=== PATIENT | female | born 1950 | race Caucasian/White ===

== ENCOUNTER → 2018-01-01 15:33 | Outpatient (CLI) | payer MEDICARE, OTHER, SELFPAY ==
--- NOTE | 2018-01-01 | DI.MRI.S_ITS ---
PROCEDURE: MR KNEE LT WO CON INDICATIONS: UNILATERAL PRIMARY OSTEOARTHRITIS OF LEFT KNEE TECHNIQUE: Noncontrast sagittal PD fast spin echo and T2 fast spin echo with fat saturation, sagittal 3-D FLASH with fat saturation; coronal T1 spin echo and PD fast spin echo with fat saturation, and axial PD fast spin echo with fat saturation through the knee. COMPARISON:[facility], CR, XR KNEE 1 OR 2 VIEWS RIGHT, 11/28/2017, 11:39. [facility], CR, XR KNEE ARTHRITIC SERIES BI, 11/11/2017, 13:58. [facility], MR, KNEE WITHOUT CONTRAST, 05/20/2016, 9:58. [facility], MR, KNEE LT W/ CONTRAST, 06/07/2013, 15:57. FINDINGS: Image quality: Excellent. Menisci: The medial meniscus is diminutive, as before, suggestive of prior partial resection. There is amorphous high signal intensity within the posterior horn medial meniscus, demonstrating superior and inferior articular surface extension, consistent with degenerative tearing, as before. Lateral meniscus is intact. Cruciate ligaments: The anterior and posterior cruciate ligaments appear intact. Medial structures: The medial collateral ligament appears intact. Mild T2 signal elevation at the tibial insertion of the semimembranosus is present. Visualized portions of the pes anserinus tendons appear normal. No abnormal bursal fluid. Lateral structures: The lateral collateral ligament demonstrates mild T2 signal elevation at the femoral insertion site. The long and short heads of the biceps femoris tendon appear intact. The popliteus tendon appears normal. Iliotibial band appears normal. Anterior structures: The quadriceps and patellar tendons appear intact. Patellar alignment is normal. No femoral trochlear dysplasia or ventral trochlear prominence. No edema in the infrapatellar fat pad. Bones and cartilage: No bone marrow contusions or fractures. Moderate tricompartmental periarticular osteophyte formation is present. Severe articular cartilage loss overlies the lateral patellar facet inferiorly, as before. There is severe articular cartilage loss diffusely overlying the weightbearing aspects of the medial femoral condyle and medial tibial plateau, as before. Joint space: There is a moderate knee joint effusion and a small Quinn's cyst. Normal appearing synovial plicae are incidentally noted. IMPRESSION: 1. Tricompartmental osteoarthritis with associated articular cartilage loss. 2. No change in degenerative tearing of the posterior horn medial meniscal remnant. 3. Insertional tendinitis of the semimembranosus. 4. Knee joint effusion and Quinn's cyst. 5. Partial-thickness tearing of the lateral collateral ligament. Dictated by: Lalitha Enamorado M.D. on 01/01/2018 at 16:54 Approved by: Lalitha Enamorado M.D. on 01/01/2018 at 16:58
== END ==
PROVIDERS: PCP Student in an Organized Health Care Education/Training Program; Visit Provider Orthopaedic Surgery
DX: M17.12 Unilateral primary osteoarthritis, left knee (principal); M23.322 Other meniscus derangements, posterior horn of medial meniscus, left knee; S83.422A Sprain of lateral collateral ligament of left knee, initial encounter; M76.892 Other specified enthesopathies of left lower limb, excluding foot; M25.462 Effusion, left knee
CPT/HCPCS: 73721

== ENCOUNTER → 2018-01-13 12:48 | Outpatient (CLI) | payer MEDICARE, OTHER, SELFPAY ==
[2018-01-13 13:21] LABS: Add Manual Diff / Slide Review NO; Basophils Percent Auto 0.9 % (0-2); Eosinophils Percent Auto 3.5 % (2-4); Hematocrit 37.5 % (36-46); Hemoglobin 12.8 g/dL (12.0-16.0); Lymphocytes Percent Auto 35.1 % (25-40); Mean Corpuscular HGB Conc 34.2 % (30-36); Mean Corpuscular Hemoglobin 33.1 PG (26-34); Mean Corpuscular Volume 96.9 fL (80-100); Monocytes Percent Auto 8.2 % (3-14); Neutrophils Absolute Auto 3000 /uL (3000-5900); Neutrophils Percent Auto 52.3 % (50-75); Platelet Count 381 X10^3/uL (150-400); Red Blood Cell Count 3.87 X10^6/uL (4.0-5.2); Red Cell Distribution Width 12.8 % (11.6-14.8); White Blood Cell Count 5.8 X10^3/uL (4.5-11.0)
[2018-01-13 14:54] LABS: Carbon Dioxide 32 mmol/L (22-32); Chloride 101 mmol/L (98-107); HEMOLYSIS < 15 (0-50); Potassium 5.2 mmol/L (3.4-5.1); Sodium 142 mmol/L (137-145)
== END ==
PROVIDERS: PCP Student in an Organized Health Care Education/Training Program; Visit Provider Orthopaedic Surgery
DX: Z01.818 Encounter for other preprocedural examination (principal); Z01.812 Encounter for preprocedural laboratory examination; M17.11 Unilateral primary osteoarthritis, right knee; Z96.651 Presence of right artificial knee joint
CPT/HCPCS: 36415; 80051; 85025; 93005

== ENCOUNTER 2018-02-18 06:26 | Day surgery (SDC) | payer MEDICARE, OTHER, SELFPAY ==
[2018-01-28 13:45] VITALS: BMI 26.3
[2018-01-28 16:00] VITALS: BMI 26.3
[2018-02-18] VITALS (14 sets, daily range): BP systolic 94–138; BP diastolic 58–78; PULSE 69–110; RESP 11–20; TEMP 36.1–37.2; O2SAT 94–100; BMI 26.3
--- NOTE | 2018-02-18 | DI.RAD.S_ITS ---
PROCEDURE: XR KNEE LT 1TO2V INDICATIONS: TOTAL LEFT KNEE TECHNIQUE: 2 view(s) of the knee acquired. COMPARISON: None. FINDINGS: Bones: Patient is status post knee joint arthroplasty. Hardware components are in expected positions. Visualized bony structures are intact. Soft tissues: Overlying postoperative changes are noted. IMPRESSION: Status post left total knee arthroplasty. Dictated by: Lyubov Cordoba M.D. on 02/18/2018 at 9:51 Approved by: Lyubov Cordoba M.D. on 02/18/2018 at 9:51
[2018-02-18] MEDS: ACETAMINOPHEN 325 MG TABLET 975 MG PO ×3 (06:50→20:49)
[2018-02-18] MEDS: PREGABALIN 75 MG CAPSULE PO (06:50)
[2018-02-18] MEDS: CELECOXIB 200 MG CAPSULE PO (06:50)
--- NOTE | 2018-02-18 06:51 | PM.PREOP ---
Pre-operative Note Interval Note Pre-op Check: Yes History & Physical Reviewed by Physician and Yes Exam Performed Changes: No
[2018-02-18] MEDS: LACTATED RINGERS 1,000 ML 42 ML IV (06:55)
--- NOTE | 2018-02-18 07:05 | P.OP_ITS ---
Operative Date/Time/Diagnoses Date of procedure: 02/18/18 Time of procedure: 09:09 Pre-op diagnosis: Left knee osteoarthritis Post-op diagnosis: same Procedure & Clinicians Procedure: Left total knee arthroplasty Same procedure as scheduled: Yes Indications: The patient presents today for total knee arthroplasty after failure of conservative treatment. The nature of the procedure including the risks and benefits, alternatives, postoperative course and expected outcome were discussed and all questions answered. Consent was obtained. Operative site confirmed and marked. Surgeon: Mane Nash Pipeline Gang Supervisor: Max Mares Anesthesia Type: General and Local Operative Notes Findings: Severe osteoarthritis with varus alignment. Closure Type: primary Specimen(s): none sent Implants & Drains: [employer] Red BCS: 4 femoral component, 2 tibial component, 9 mm BCS polyethylene tray and 29 x 9 mm round patella Applied: implant(s) Estimated Blood Loss (mL): 50 Blood products transfused: none Tourniquet time (min): 17 Procedure in detail: The patient was taken to the operative suite and placed under general anesthesia. The patient was given prophylactic antibiotics prior to surgery. The patient was also given tranexamic acid, 1 g, just prior to surgery for postoperative hemostasis. The lateral knee was prepped and the joint injected with 20 mL of 1% Lidocaine with epinephrine. The knee was then prepped and draped in usual sterile fashion. The leg was exsanguinated with an Esmarch dressing and the tourniquet raised to 250 torr. A 15 cm anterior incision was made. Next a medial trivector arthrotomy was made. The extensor mechanism was marked to ensure accurate repair. Initial exposing dissection was carried out medially and laterally. The knee was then extended and the patellar thickness was measured and a cut made removing approximately 9 mm of bone with a goal of restoring normal patellar thickness. The patella was then sized and drilled. Some excess lateral bone was excised and the patellofemoral ligament released. The tourniquet was then released. The knee was then flexed and the [employer] femoral guide was placed. The anterior pins were placed and the distal rotation holes drilled. The distal cutting guide was placed and the templated distal femoral cut was made. The templating cutting block was then placed and the anterior, posterior and chamfer cuts made. The [employer] tibial guide was placed and the alignment checked along the axis of the proximal tibial with a donya. The proximal tibial cut was then made with an oscillating saw. All meniscus and bony debris was then removed. Flexion extension gaps were checked. No specific balancing was required other than routine exposure and removal of osteophytes. The knee was actually slightly looser medially than laterally. The soft tissues were then injected with a combination of 20 mL of half percent Marcaine with epinephrine and 20 mL of Exparel. The trial components were then placed. The knee went into full extension and flexion beyond 120?. There was excellent medial- lateral balance throughout motion. Patellar tracking was excellent. The trial components were removed and size is confirmed for the final implants. The knee was then exsanguinated with an Esmarch dressing and the tourniquet reapplied for cementing. The knee was cleansed with Pulsavac irrigation and dried. The final components were cemented in with high viscosity vacuum mixed bone cement with antibiotics. The knee was held in extension and the patellar clamp until the cement had adequately cured. The knee was then irrigated with dilute Betadine solution. The extensor mechanism was closed with 5 interrupted #1 Vicryl sutures in 90 degrees of flexion. The joint was then injected with a combination of 1 g of tranexamic acid and 20 mL of quarter percent Marcaine with epinephrine. The subcutaneous tissue was closed with 2-0 Vicryl. The skin was closed with 4 0 V lock and surgical adhesive. An Aquacell dressing and Ej wrap were then applied. Complications: none Condition: stable Disposition: PACU Plan for aftercare: [facility]. Discharged to home in 1-2 days.
[2018-02-18] MEDS: CEFAZOLIN 2 GM/100 ML FROZ.PIGGY IV ×2 (08:00→16:41)
--- NOTE | 2018-02-18 08:18 | SUR.OPER ---
Supine on padded OR bed. Pillow under head, arms secured on padded armboards <90 degree abduction. Safety belt across torso. Non-operative leg secured with tape over blanket over lower leg. Operative leg secured in DeMayo/Malik positioner. Foam padded brace at thigh of operative leg.
[2018-02-18] MEDS: LIDOCAINE 1% W/EPI INJ 20 ML INJ (08:29)
[2018-02-18] MEDS: BUPIVACAINE LIPOSOME 266 MG/20 ML VIAL INJ (08:32)
[2018-02-18] MEDS: BUPIVACAINE 0.5% W/ EPI (PF) 20 ML, BUPIVACAINE LIPOSOME 266 MG, SODIUM CHLORIDE 0.9% 2... INJ (08:33)
[2018-02-18] MEDS: TRANEXAMIC ACID 1,000 MG VIAL 1000 MG INJ (08:36)
[2018-02-18] MEDS: POVIDONE-IODINE 15 ML, SODIUM CHLORIDE 0.9% 250 ML TOP (08:37)
[2018-02-18] MEDS: HYDROMORPHONE 2 MG INJ 0.5 MG IV ×2 (09:52→09:58)
[2018-02-18] MEDS: LACTATED RINGERS 1,000 ML 125 ML IV ×2 (10:45→20:53)
--- NOTE | 2018-02-18 11:06 | CM.DANOTE ---
DCP: Case received, EMR reviewed and met with patient. Introduced self and role. DCP template completed with information currently available. Patient is a 67 year old female who admitted early this am to the care of the hospitalist team. PCP: Dr. Milan. Surgeon: Dr. Nash. Payer: confirmed: Medicare/[facility] Patient came to hospital for Left Total Knee Arthroplasty. Met with patient this morning, in room. Pleasant. Stated that she had her other knee done in November, and still has her crutches. Also stated that she has been going to outpatient physical therapy in [facility] which she will continue to do. is supportive. Patient stated that her only concern is that she lives in a tri-level home. Stated that physical therapy will work with her. P: DCP to continue to follow closely. Patient should be able to return home after working with physical therapy. Tatyana Lange RN/[employer]
[2018-02-18] MEDS: HYDROCODONE/ACET 5/325 TABLET 2 TAB PO ×2 (13:18→18:02)
--- NOTE | 2018-02-18 14:11 | PT.IIE ---
Addendum entered and electronically signed by Vonda Sargent PT 02/19/18 09:02: This is to certify that I have reviewed this documentation and POC Original Note: Current Diagnoses Unilateral primary osteoarthritis, left knee (02/18/18) Presence of right artificial knee joint (02/18/18) Surgery Performed Operation Date: 02/18/18 07:45 Actual Procedures p Total Knee Arthroplasty(Left) - Mane Nash MD Surgical History (Last Updated 01/28/18 @ 14:02 by Nancy Florez RN) H/O arthroscopic knee surgery (Acute ~2000) H/O shoulder surgery (Acute) History of bladder surgery (Acute) History of hand surgery (Acute ~2006) Status post right partial knee replacement (Acute) Medical History (Last Updated 01/28/18 @ 16:17 by Nancy Florez RN) Constipation (Acute) Degenerative arthritis of left knee (Acute) Diverticulitis (Acute) Failure of rotator cuff repair (Acute) GERD (gastroesophageal reflux disease) (Acute) History of hysterectomy (Acute) History of recurrent UTIs (Acute) Hyperlipidemia (Acute) Osteoarthritis (Acute) UTI (urinary tract infection) (Acute) Physical Therapy Inpatient Evaluation/Re-Eval M1 PT/OT-IP Prior Functional Status Start: 02/18/18 16:32 Freq: NEEDED Status: Active Protocol: Document 02/18/18 14:11 (Rec: 02/18/18 17:01 [id number]) Medical Review Prior Functional Status Medical History Reviewed Yes Communication No deficits noted. Mobility and Gait Pt previously community ambulator using no AD. Independent in self care and driving. Describes herself as an avid golfer. Social History Household Members spouse Living Arrangements House Number of Floors (Floors) 3 or More Floors Number of Stairs To Enter/Railing? 3 steps L rail + landing + 5steps B rails to enter. First floor is rarely used. 4steps L rail + landing + 5 steps L rail to kitchen and living room. 6steps-7 R rail to access main bathroom and bedroom. 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 Her is avaliable to assist 24/7 at d/c Pt also has recumbant bike. M2 PT-IP Current Condition Start: 02/18/18 16:32 Freq: NEEDED Status: Active Protocol: Document 02/18/18 14:11 (Rec: 02/18/18 17:01 [id number]) Physical Therapy Current Condition Current Condition Evaluation Date 02/18/18 Treatment Diagnosis L TKA; difficulty walking Onset Date 02/18/18 Weight Bearing Status Weight Bearing Status Weight Bear as Tolerated M3 PT-IP Subjective Start: 02/18/18 16:32 Freq: NEEDED Status: Active Protocol: Document 02/18/18 14:11 (Rec: 02/18/18 17:01 [id number]) Subjective Physical Therapy Visit Type Type Initial Evaluation Visit Start Time 14:11 Visit Stop Time 15:14 Total Visit Minutes 63 Number of TRADE ANALYST Visits 0 Physical Therapy Visit Comments Patient Comments Pt agreeable to mobilize with PT. Patient Goals Pt has tri level home and wants to be able to access all 3 floors at d/c. Her main bathroom and bedroom are on the top floor and she is not open to rearranging her home. She wants to ambulate with no AD. Therapy Pain Assessment Pain When Pain Assessed During Mobility Pain Present Pain Present Pain Reported Location Left Knee Scale Used 1/10 at rest. 3/10 with activity. Pain Management Techniques Apply Cold Elevation Modification of Treatment Re-positioning Timing of Activity with Medications M4 PT-IP Mobility and Gait Start: 02/18/18 16:32 Freq: NEEDED Status: Active Protocol: Document 02/18/18 14:11 (Rec: 02/18/18 17:01 [id number]) PT-Bed Mobility Assessment Supine to Sit Supine to Sit Standby Assistance Sit to Supine Sit to Supine Standby Assistance Scooting Scooting to Edge of Bed Standby Assistance PT-Transfer Assessment Sit to and From Stand Sit to and from Stand Contact Guard Assistance Use of Upper Extremities Equipment Transfer Assistive Device Gait Belt Front Wheeled Walker Axillary Crutches Orthotic/Prosthetic Devices or Brace: No Transfers Transfer Destination Bed Chair Transfer Technique Ambulates between surfaces. Comments Mobility Comments Supine BP 131/74. Supine <> sit is SBA no cues. Sit <> stand with fww is CGA min cues . BP on standing is 117/74. Pt cued to breath. She states no c/o of dizziness or nausea and requests to use the toilet. She is able to sit <> stand from toilet with no UE assist CGA. Sit <> stand with crutches is CGA min cues. After ambulating to the toilet (see below ) BP 128/70) . Pt continues to deny symptoms of nausea or dizziness and agrees to ambulate and try stairs. Gait Assessment Gait Gait Assistance Required: Contact Guard Assist Distance (Feet) 200 Able to Maintain Weight Bearing Status Yes During Gait Assistive Devices Assistive Device Gait Belt Front Wheeled Walker Axillary Crutches Orthotic/Prosthetic Devices or Brace: No Gait Deviations General Gait Pattern Antalgic Decreased Feet Clearance Factors Limiting Gait Function Factors Limiting Gait Function Decreased Activity Tolerance Decreased Strength Difficulty Following Directions Limited Range of Motion Pain Poor Balance Poor Safety Awareness Comments Gait Comments Pt ambulates in room 15 ft with fww CGA with max cues for fww management. Pt states preference for crutches and requests trial with crutches. Pt ambulates 200 ft using B axillary crutches CGA with max cues. She demonstrates impulsivity lifting her crutches up out to the side despite cues and is asked repeatedly to wait for PT. Gait pattern demonstrates low foot clearance and tendency to maintain knee in ~ 10 deg flexion. With min cues she is able to partially correct. Pt occilates between 3 pt and 4 pt. gait pattern. Pt cued to maintain 3 pt with crutches to offload the LLE but she states preferring to go back and forth. Stair Climbing Assessment Evaluation Level of Assist On Stairs Contact Guard Assistance Devices Stair Climbing Assistive Devices Axillary Crutches Right Railing Technique/Endurance Stair Climbing Direction Ascend and Descend Stair Climbing Technique Step to Step Number of Steps Climbed 3 Query Text: Stair Climbing Set # Repetitions (reps) 2 Comments Stair Climbing Comments Pt up/down steps CGA with unilateral crutch L arm and R rail ascending. Max cues for technique and pt impulsive, not waiting for PT instructions. PT-Balance Assessment Sitting Balance and Reactions Static Sitting Balance Ability Good Dynamic Sitting Balance Ability Good Standing Balance and Reactions Static Standing Balance Ability Good Dynamic Standing Balance Ability Fair Device Used B axillary crutches. M5 PT-IP Objective Assessments Start: 02/18/18 16:32 Freq: NEEDED Status: Active Protocol: Document 02/18/18 14:11 (Rec: 02/18/18 17:01 [id number]) Orientation Orientation/Cognition Level of Alertness Alert Orientation Name Age Birthday Month Date Year Day of Week Place Situation Safety Awareness Decreased Safety Awareness Gross Range of Motion Lower Extremity ROM Assessment Left Impaired Impairments L knee flexion 90 deg. Strength Lower Extremity Strength Assessment Left Impaired Comments Strength Comments Gross strength RLE 5/5. LLE 3 /5 Sensation Assessment Sensation Light Touch Intact M6 PT-IP Treatment Start: 02/18/18 16:32 Freq: NEEDED Status: Active Protocol: Document 02/18/18 14:11 (Rec: 02/18/18 17:01 [id number]) Physical Therapy Treatment Education Education Provided Precautions Weight Bearing Status Post-Op Packet Safety M7 PT-IP Assessment and Plan Start: 02/18/18 16:32 Freq: NEEDED Status: Active Protocol: Document 02/18/18 14:11 (Rec: 02/18/18 17:01 [id number]) PT Summary Assessment and Plan Potential Rehabilitation Potential Good Status of Condition at Evaluation Stable Summary Impairments Pain ROM Strength Balance Bed Mobility Transfers Gait Activity Tolerance Progress Towards Goals Progressing Toward Goals Assessment Summary Pt s/p L TKA with difficulty walking. She completed 200 ft ambulation with B axillary crutches CGA as well as completed up/down 3 steps using R rail, unilateral axillary crutch and CGA. Pt requires max cues for safety this session, demonstrating poor safety awareness and impulsivity that increase her risk for falls. Pt needs continued education regarding safety issues. Once stair and ambulatoin training have progressed, pt safety improves , and pt is medically stable recommend d/c to home with 24/ 7 assist of and f/u OP PT. Goals Bed Mobility Goal Independent Transfer Goal Standby Assistance Crutches Gait Goal Standby Assistance Crutches Gait Distance 250 Days to Meet Goals 2 Frequency of Treatment Frequency Of Treatment Twice a Day Treatment Plan Physical Therapy Treatment Plan Bed Mobility Training Transfer Training Gait Training Therapeutic Exercise Balance Retraining Post Op Education Discharge Planning Hot or Cold Pack Neuromuscular Re-ed Coordination Retraining Manual Therapy Other Recommendations and Next Treatment progress stair climbing and Focus ambulation. emphasize pt safety education as she tends to be impulsive. Recommendations To Nursing Amount of Assist Needed 1 Person Assist Discharge Recommendations PT Discharge Recommendations Home with 24/7 Assist Outpatient PT
--- NOTE | 2018-02-18 15:27 | PC.NURSE ---
Pt to room around 1015. She is a&ox3. Given 1 vicodin around 1315 and ice. Both of which have been helpful for discomfort. Pt explained to that she can have more vicodin if pain increases. She was a 5 before given.
[2018-02-18] MEDS: ASPIRIN EC 81 MG TABLET PO (20:49)
[2018-02-18] MEDS: TRAZODONE 50 MG TABLET PO (20:50)
[2018-02-19] MEDS: CEFAZOLIN 2 GM/100 ML FROZ.PIGGY IV (00:19)
[2018-02-19] MEDS: HYDROMORPHONE 0.5 MG INJ IV (04:06)
[2018-02-19] MEDS: IBUPROFEN 600 MG TABLET PO ×2 (04:13→09:50)
[2018-02-19] MEDS: ONDANSETRON 4 MG/2 ML INJ IV (04:13)
[2018-02-19 04:15] VITALS: BP 111/60; PULSE 77; RESP 16; TEMP 36.7; O2SAT 95
[2018-02-19] MEDS: PANTOPRAZOLE 20 MG TABLET PO (07:51)
[2018-02-19] MEDS: ASPIRIN EC 81 MG TABLET PO (07:55)
[2018-02-19] MEDS: ACETAMINOPHEN 325 MG TABLET 975 MG PO (07:55)
[2018-02-19 08:17] VITALS: BP 111/57; PULSE 74; RESP 20; TEMP 36.5; O2SAT 97
--- NOTE | 2018-02-19 09:04 | PC.NURSE ---
Pt up in room using one crutch to ambulate. States this is more comfortable for her than a walker as she has a painful left wrist. Pt requesting to be discharged by noon and was told that this would be possible once she has been passed by PT. Pt was able to laugh at the issues she had with not having docusate and tylenol available as she would have liked. Plan to discuss with PA this am.
--- NOTE | 2018-02-19 09:15 | PT.IPTN ---
Current Diagnoses Unilateral primary osteoarthritis, left knee (02/18/18) Presence of right artificial knee joint (02/18/18) Surgery Performed Operation Date: 02/18/18 07:45 Actual Procedures p Total Knee Arthroplasty(Left) - Mane Nash MD Physical Therapy Treatment Note M2 PT-IP Current Condition Start: 02/18/18 16:32 Freq: NEEDED Status: Discharge Protocol: Document 02/18/18 14:11 (Rec: 02/18/18 17:01 [id number]) Physical Therapy Current Condition Current Condition Evaluation Date 02/18/18 Treatment Diagnosis L TKA; difficulty walking Onset Date 02/18/18 Weight Bearing Status Weight Bearing Status Weight Bear as Tolerated M3 PT-IP Subjective Start: 02/18/18 16:32 Freq: NEEDED Status: Discharge Protocol: Document 02/19/18 09:15 GGD (Rec: 02/19/18 11:25 GGD [id number]) Subjective Physical Therapy Visit Type Type Treatment Note Visit Start Time 08:50 Visit Stop Time 09:15 Total Visit Minutes 25 Number of LOAN PROCESSOR Visits 1 Physical Therapy Visit Comments Patient Comments Pt states she feels ready to go home. Therapy Pain Assessment Pain When Pain Assessed During Mobility Pain Present Pain Present Pain Reported Location Left Knee Intensity 3 Scale Used Numeric (1 - 10) M4 PT-IP Mobility and Gait Start: 02/18/18 16:32 Freq: NEEDED Status: Discharge Protocol: Document 02/19/18 09:15 GGD (Rec: 02/19/18 11:25 GGD [id number]) PT-Bed Mobility Assessment Supine to Sit Supine to Sit Standby Assistance Sit to Supine Sit to Supine Standby Assistance Scooting Scooting to Edge of Bed Standby Assistance PT-Transfer Assessment Sit to and From Stand Sit to and from Stand Contact Guard Assistance Use of Upper Extremities Equipment Transfer Assistive Device Gait Belt Axillary Crutches Orthotic/Prosthetic Devices or Brace: No Transfers Transfer Destination Bed Gait Assessment Gait Gait Assistance Required: Contact Guard Assist Distance (Feet) 400 Able to Maintain Weight Bearing Status Yes During Gait Assistive Devices Assistive Device Gait Belt Axillary Crutches Orthotic/Prosthetic Devices or Brace: No Gait Deviations General Gait Pattern Antalgic Decreased Feet Clearance Factors Limiting Gait Function Factors Limiting Gait Function Decreased Activity Tolerance Decreased Strength Difficulty Following Directions Limited Range of Motion Pain Poor Balance Poor Safety Awareness Comments Gait Comments pt need cues for ambulation and is impulsive with transfers. Stair Climbing Assessment Evaluation Level of Assist On Stairs Contact Guard Assistance Devices Stair Climbing Assistive Devices Axillary Crutches Right Railing Technique/Endurance Stair Climbing Direction Ascend and Descend Stair Climbing Technique Step to Step Number of Steps Climbed 3 Query Text: Stair Climbing Set # Repetitions (reps) 4 Comments Stair Climbing Comments Pt up/down steps CGA with unilateral crutch L arm and R rail ascending. Mod cues for technique. M5 PT-IP Objective Assessments Start: 02/18/18 16:32 Freq: NEEDED Status: Discharge Protocol: Document 02/18/18 14:11 (Rec: 02/18/18 17:01 [id number]) Orientation Orientation/Cognition Level of Alertness Alert Orientation Name Age Birthday Month Date Year Day of Week Place Situation Safety Awareness Decreased Safety Awareness Gross Range of Motion Lower Extremity ROM Assessment Left Impaired Impairments L knee flexion 90 deg. Strength Lower Extremity Strength Assessment Left Impaired Comments Strength Comments Gross strength RLE 5/5. LLE 3 /5 Sensation Assessment Sensation Light Touch Intact M6 PT-IP Treatment Start: 02/18/18 16:32 Freq: NEEDED Status: Discharge Protocol: Document 02/19/18 09:15 GGD (Rec: 02/19/18 11:25 GGD [id number]) Physical Therapy Treatment Exercises Exercises Ankle Pumps Quad Sets Heel Slides Straight Leg Raises M7 PT-IP Assessment and Plan Start: 02/18/18 16:32 Freq: NEEDED Status: Discharge Protocol: Document 02/19/18 09:15 GGD (Rec: 02/19/18 11:25 GGD [id number]) PT Summary Assessment and Plan Summary Assessment Summary Pt improving with mobility. She needs cues for mobility. She is impulsive and easily distracted. She need cues for safety and gait technique with crutches. Frequency of Treatment Frequency Of Treatment Twice a Day Treatment Plan Physical Therapy Treatment Plan Bed Mobility Training Transfer Training Gait Training Therapeutic Exercise Balance Retraining Post Op Education Discharge Planning Hot or Cold Pack Neuromuscular Re-ed Coordination Retraining Manual Therapy Other Recommendations and Next Treatment progress stair climbing and Focus ambulation. emphasize pt safety education as she tends to be impulsive. Recommendations To Nursing Amount of Assist Needed 1 Person Assist Discharge Recommendations PT Discharge Recommendations Home with / Assist Outpatient PT
[2018-02-19] MEDS: DOCUSATE 100 MG CAPSULE PO (09:57)
--- NOTE | 2018-02-19 10:05 | P.DS_ITS ---
History of Present Illness Date Patient Seen: 02/19/18 Time Patient Seen: 10:04 Chief complaint: 10550 LEFT TOTAL KNEE ARTHROPLASTY Narrative: The patient presents today for total knee arthroplasty after failure of conservative treatment. The nature of the procedure including the risks and benefits, alternatives, postoperative course and expected outcome were discussed and all questions answered. Consent was obtained. Operative site confirmed and marked. Discharge Providers Date of admission: 02/18/18 06:26 Primary care physician: Blanca Milan MD Consults: 02/18/18 10:30 Consult to Discharge Planning Routine Comment: Consult to Physical Therapy Evaluate & Treat Comment: Physician Instructions: postop TKA protocol Consult to Respiratory Therapy Evaluate & Treat Comment: Physician Instructions: Evaluate and treat Discharge provider: Carina Kohli PA-C Discharge Date: 02/19/18 Summary Discharge Diagnosis: s/p left TKA Hospital Course: Emma was admitted for left total knee arthroplasty with Dr. Nash, and she consented to procedure. Hospital course was unremarkable. On postop day 1. Patient was feeling well and ready to go home. Pain was well controlled with Crump, Tylenol, and ibuprofen. ASA for DVT prophylaxis. She is up and mobilizing with physical therapy. Calves are soft, compressible, and nontender bilaterally at time of discharge. She is eating and voiding without difficulty or assistance. Exam Vital Signs (past 8 hours): - 02/19/18 04:15 02/19/18 08:17 Temperature 98.0 F 97.7 F Pulse Rate 77 74 Respiratory Rate 16 20 Blood Pressure 111/60 111/57 L Pulse Oximetry 95 97 Oxygen Delivery Method Room Air Oxygen Flow Rate 0 Narrative Exam Narrative: Patient lying in bed in no acute distress. She is alert and oriented x3. Dressing on left knee is CDI. Ej wrap in place. Calves are soft , compressible, nontender bilaterally. Sensation intact to light touch throughout bilateral lower extremities. Pulses are symmetrical. Patient using crutches to mobilize. Her pain is well controlled this morning. Denies chest pain or shortness of breath. Discharge Plan Discharge Plan Patient Disposition: Home Discharge comment: DC home today before noon Discharge Med Rec/Prescriptions Prescriptions: New docusate sodium 100 mg Capsule 100 mg PO BID PRN (Reason: Constipation) Qty: 60 RF: 0 Continue multivitamin Tablet 1 tab PO DAILY RF: 0 atorvastatin 40 mg Tablet 40 mg PO DAILY RF: 0 trazodone 50 mg Tablet 50 - 100 mg PO BEDTIME RF: 0 valacyclovir 1 gram Tablet 1,000 mg PO DAILY PRN (Reason: Outbreak) RF: 0 hydroxyzine HCl 25 mg Tablet 25 mg PO Q6H PRN (Reason: anxiety (spasms, discomfort)) RF: 0 estradiol 0.01 % (0.1 mg/gram) Cream 1 pump VAGINAL 2XW RF: 0 calcium phos,dibas-vitamin D3 105-120 mg-unit Tablet 1 cap PO DAILY RF: 0 aspirin [Aspir-81] 81 mg Tablet,Delayed Release (Dr/Ec) 81 mg PO BID RF: 0 omeprazole 20 mg Capsule,Delayed Release(Dr/Ec) 20 mg PO DAILY RF: 0 Changed acetaminophen 325 mg Tablet 975 mg PO TID Qty: 0 RF: 0 Follow up/Referrals: Mane Nash MD [Physician] - (Please follow up in 5-7 days at [facility] [place] [facility] [place] [facility] Provider Discharge Instructions Diet: Diet as Tolerated Cold/Heat Therapy: as needed Skin/Wound/Dressing Care Report to your healthcare provider any signs of infection, such as:: chills, fever and increased pain Dressing: leave in place for 10-14 days Visit Report/Discharge Packet Instructions: DI for Knee Replacement Discharge Data Primary Care Provider: Blanca Milan Attending Provider: Mane Nash Admit Date/Time: 02/18/18 06:26 Quality VTE Deep Vein Thrombosis/Pulmonary Embolism Present on Admission: No
--- NOTE | 2018-02-19 10:43 | CM.DPC ---
DCP: Patient is to be discharged home today. Will be pursuing outpatient physical therapy. will be transporting patient and assisting patient with any needs she may have at home. Has already done stair training with physical therapy. P: Patient is to be discharged home today. Tatyana Lange RN/[employer]
--- NOTE | 2018-02-19 11:11 | PC.NURSE ---
Pt requesting vicodin but not able to have because she will exceed max dose of 4G of tylenol. Pt believes this is not correct but explained to patient that we cannot give more tylenol at this time. Unable to tolerate oxycodone therefore will need to wait until mid afternoon before her next dose. Explained to patient how the numbers exceed the 4gm tyron but pt remains unconvinced and believes that she should be able to take this vicodin. Also remains upset that she was not given docusate overnight. This was administered to her as soon as order obtained from PA in the morning. Discharge information given, pt has scripts at home. Taken by wheelchair to private vehicle.
== END 2018-02-19 11:21 | disposition home or self-care (01) ==
LOC: AC 02-19 10:04 → OR 02-19 11:32
PROVIDERS: PCP Student in an Organized Health Care Education/Training Program; Visit Provider Orthopaedic Surgery
PROC: 0SRD0JZ Replacement of Left Knee Joint with Synthetic Substitute, Open Approach (ICD-10-PCS; CPT 27447; principal; 2018-02-18 07:45)
DX: M17.12 Unilateral primary osteoarthritis, left knee (principal); Z96.651 Presence of right artificial knee joint; E78.5 Hyperlipidemia, unspecified
CPT/HCPCS: 27447; 73560; 97116; 97161; 97530; C1776; C9290; J0690; J1100; J1170; J2405; J2704; J3010